=== PATIENT | female | born 1970 | race Caucasian/White ===

== ENCOUNTER 2019-12-16 11:10 | Emergency (ER) | payer MEDICAID, OTHER ==
[~2019-12-16] VITALS: Ht 177.8 cm; Wt 63.6 kg
[~2019-12-16 11:10] MED LIST: CARV3 PO; CHOL100030 PO; ESCI10TA PO; LURA20TA PO
[2019-12-16] MEDS ORDERED: LIDOCAINE 5% TRANSDERMAL PATCH TD ONE (12:00)
[2019-12-16 12:32] VITALS: BP 122/76
== END 2019-12-16 13:12 | disposition home or self-care (01) ==
LOC: EMS 11:11
DX: S90.822A Blister (nonthermal), left foot, initial encounter (principal); N76.0 Acute vaginitis; Z88.5 Allergy status to narcotic agent; Z88.6 Allergy status to analgesic agent; Z88.8 Allergy status to other drugs, medicaments and biological substances; Z79.899 Other long term (current) drug therapy; F17.210 Nicotine dependence, cigarettes, uncomplicated; X58.XXXA Exposure to other specified factors, initial encounter; Y93.89 Activity, other specified; Y92.89 Other specified places as the place of occurrence of the external cause; Y99.8 Other external cause status
CPT/HCPCS: 99406